=== PATIENT | female | born 1940 | race American Indian/Alaskan Native ===

== ENCOUNTER 2018-05-22 10:22 | Day surgery (SDC) | payer MEDICARE, OTHER ==
[2018-05-22] MEDS ORDERED: Midazolam 1 MG/ML 2 ML SDV IV ONE (10:23)
[2018-05-22] MEDS ORDERED: Dexamethasone 4 MG/ML SDV IV ONE (10:23)
[2018-05-22] MEDS ORDERED: Sodium Chloride 0.9% 10 ML Syringe IV ONE (10:23)
[2018-05-22] MEDS ORDERED: Sodium Chloride 0.9% 10 ML Syringe FLUSH PRN (10:30)
[2018-05-22] MEDS ORDERED: Moxifloxacin 0.5% Ophth Soln 3 ML Bottle EYERT ONE (10:30)
[2018-05-22] MEDS ORDERED: Phenylephrine 10% Ophth Soln 5 ML Bot EYERT PRN (10:30)
[2018-05-22] MEDS ORDERED: Ondansetron 4 MG/2 ML SDV IVPUSH PRN (10:30)
[2018-05-22] MEDS ORDERED: Phenylephrine 10% Ophth Soln 5 ML Bot EYERT ONE (10:30)
[2018-05-22] MEDS ORDERED: Timolol Maleate 0.5% Ophth Soln 5 ML Bottle EYERT ONE (10:30)
[2018-05-22] MEDS ORDERED: Cataract Ophth Solution EYERT ONE (10:30)
[2018-05-22] MEDS ORDERED: Proparacaine 0.5% Ophth Soln 15 ML Bottle EYERT ONE (10:30)
[2018-05-22] MEDS ORDERED: Acetaminophen 325 MG Tab PO PRN (10:30)
[2018-05-22] MEDS ORDERED: Povidone-Iodine 5% Sterile Ophth Soln 30 ML Bottle EYERT ONE ×2 (10:30→11:14)
[2018-05-22] MEDS ORDERED: Tetracaine HCl/PF 0.5% 4 ML Bottle EYERT ONE (11:14)
[2018-05-22] MEDS ORDERED: Lidocaine 1% 30 ML SDV ONE (11:14)
[2018-05-22] MEDS ORDERED: Diclofenac Sodium 0.1% Ophth Soln 5 ML Bottle EYERT ONE (11:14)
[2018-05-22] MEDS ORDERED: Dexamethasone/Neomycin/Polymyxin B Ophth Oint 3.5 GM Tube EYERT ONE (11:15)
[2018-05-22] MEDS ORDERED: Vancomycin 500 MG SDV EYERT ONE (11:15)
[2018-05-22] MEDS ORDERED: Balanced Salt Solution Ophth Irrig 500 ML Bottle IOCULAR ONE (11:15)
[2018-05-22] MEDS ORDERED: Apraclonidine 0.5% Ophth Soln 5 ML Bot EYERT ONE (11:15)
[2018-05-22] MEDS ORDERED: Chondroitin Sulfate/Hyaluronate Sodium Ophth Inj 0.75 ML Syringe EYERT ONE (11:16)
--- NOTE | 2018-05-22 14:11 | OR ---
DATE: 05/22/2018 PREOPERATIVE DIAGNOSIS: Visually significant mixed cataract, right eye. POSTOPERATIVE DIAGNOSIS: Visually significant mixed cataract, right eye. PROCEDURE: Extracapsular cataract extraction with intraocular lens implant, right eye. ANESTHESIA: Topical/local MAC. COMPLICATIONS: None. INDICATION: Ms. Severino was seen in the clinic. Examination revealed visually significant cataract. She is symptomatic with blurred vision, difficulty reading, and difficulty seeing small print. I explained options; offered surgery; and I explained risks preoperatively including the potential for infection, retinal detachment, loss of vision, and need for additional surgery amongst others. We discussed implant options. She has requested surgery with a monofocal implant. She is unhappy with her vision, voiced an understanding with respect to risks and wished to proceed. OPERATIVE DESCRIPTION: After informed consent was obtained and the risks, benefits, and alternatives were explained, the patient was brought to the operative suite and topical anesthesia was administered. The patient was then prepped and draped in the sterile fashion, and attention was placed on the right eye. A sterile lid speculum was placed into the right eye to allow operative exposure. A full-thickness paracentesis was made in the temporal portion of the operative eye. Preservative-free lidocaine 0.1 mL was injected into the anterior chamber followed by viscoelastic. A full-thickness corneal incision was then made into the anterior chamber. A bent needle cystotome was used to create a small magali in the anterior capsule. The capsulorrhexis forceps was then used to create a 360-degree curvilinear capsulorrhexis. The nucleus was then removed using a phacoemulsification handpiece, and the remaining cortical material was then removed with irrigation and aspiration handpiece. Following removal of the cortical material, the capsular bag was then inspected and noted to be free of any holes or tears. Viscoelastic was then injected into the capsular bag, and the intraocular lens was inserted into the capsular bag. The viscoelastic material was then removed from both the anterior and posterior chambers and from behind the IOL. The lens and capsular bag were then reinspected. The IOL was well centered and the capsular bag intact. The wound and paracentesis sites were inspected and hydrated with balanced saline solution. Both were found to be self-sealing. The intraocular pressure was assessed digitally and found to be within normal range. A good red reflex was noted at the completion of the procedure. No complications occurred during the operation. At the completion of the procedure, Maxitrol, Voltaren, and Iopidine drops were placed into the operative eye. A sterile eye shield was placed over the operative eye, and the patient was transported to the postoperative recovery area having tolerated the procedure well. Postoperative instructions were given along with a postoperative appointment. The patient was advised to call with any questions or concerns. [facility] /[id number]
== END 2018-05-22 12:38 | disposition home or self-care (01) ==
LOC: DL.SDS 10:22
PROVIDERS: ATTEND Ophthalmology
DX: E11.36 Type 2 diabetes mellitus with diabetic cataract (principal); H25.811 Combined forms of age-related cataract, right eye; I10 Essential (primary) hypertension; E78.5 Hyperlipidemia, unspecified; D64.9 Anemia, unspecified; Z79.82 Long term (current) use of aspirin; Z79.899 Other long term (current) drug therapy
CPT/HCPCS: 00142; 66984; A9270; J1100; J2250; J3370; V2632

== ENCOUNTER 2020-09-01 17:45 | Emergency (ER) | payer MEDICARE, OTHER ==
--- NOTE | 2020-09-01 18:42 | EDM.PDOC ---
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 The patient reports she was standing up from her chair at approximately 0900 when her foot caught on her lap blanket and she tipped over onto her head. She denies loss of consciousness and remembers the event in its entirety; she is not on blood thinners. She reports bleeding from a laceration to her head which has since stopped and scabbed over. She denies vision changes, headache, confusion, projectile vomiting, palpitations, or seizure-like activity. The patient denies pain to her neck, trunk, bilateral upper extremities, or right lower extremity. She attests to chronic pain to left, lateral low back and left hip for the past month, 08/01/20. The patient reports she underwent a total hip in 03/2020 which has been healing well, however she woke up with pain in this extremity on Sunday and has been doctoring with her surgeon and primary care provider since. She presents today at the request of her daughter who is concerned about the laceration requiring repair. - Related Data Allergies Allergy/AdvReac Type Severity Reaction Status Date / Time aspirin AdvReac ITCHING, Uncoded 09/02/20 10:37 WATERING EYES lisinopril AdvReac Cough Uncoded 09/02/20 10:37 Home Meds: Home Meds metFORMIN HCl [Metformin HCl] 500 mg PO BID 11/05/15 [History] Acetaminophen [Tylenol] 650 mg PO .Q4-6H PRN 02/20/18 [History] Ascorbic Acid 250 mg PO DAILY 02/20/18 [History] Calcium Carbonate/Vitamin D3 [Calcium Carbonate/Vitamin D 600 MG-200 Unit] 1 tab PO BID 02/20/18 [History] Carboxymethylcellulose Sodium [Refresh Liquigel 1%] 1 drop EYEBOTH QID PRN 02/20/18 [History] Cholecalciferol (Vitamin D3) [Vitamin D3] 1,000 units PO DAILY 02/20/18 [History] Cyanocobalamin (Vitamin B-12) [B-12] 1,000 mcg PO DAILY 02/20/18 [History] Ferrous Gluconate 324 mg PO DAILY 02/20/18 [History] Gabapentin [Neurontin] 800 mg PO TID 02/20/18 [History] Losartan [Cozaar] 100 mg PO DAILY 02/20/18 [History] Simvastatin [Zocor] 40 mg PO DAILY 02/20/18 [History] atenoloL [Tenormin] 50 mg PO DAILY 02/20/18 [History] hydroCHLOROthiazide [Hydrochlorothiazide] 25 mg PO DAILY 02/20/18 [History] Omeprazole 20 mg PO DAILY 02/25/18 [History] Clarithromycin 500 mg PO BID 03/08/18 [History] metroNIDAZOLE [Metronidazole] 500 mg PO BID 03/08/18 [History] tiZANidine [Zanaflex] 2 mg PO Q6HR PRN 09/01/20 [History] traMADol [Ultram] 50 mg PO Q6HR PRN 09/01/20 [History] Past Medical History HEENT History: Reports: Cataract, Hard of Hearing, Impaired Vision Cardiovascular History: Reports: High Cholesterol, Hypertension Respiratory History: Reports: None Gastrointestinal History: Reports: None Genitourinary History: Reports: None 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: Musculoskeletal History: Reports: RA Neurological History: Reports: None Psychiatric History: Reports: None Endocrine/Metabolic History: Reports: Diabetes, Type II Hematologic History: Reports: Iron Deficiency Immunologic History: Reports: None Oncologic (Cancer) History: Reports: None Dermatologic History: Reports: None - Infectious Disease History Infectious Disease History: Reports: None - Past Surgical History Head Surgeries/Procedures: Reports: None HEENT Surgical History: Reports: Cataract Surgery, Tonsillectomy, Other (See Below) Other HEENT Surgeries/Procedures: EAR SURG DUE TO HEARING LOSS Cardiovascular Surgical History: Reports: None GI Surgical History: Reports: Appendectomy, Cholecystectomy, Colonoscopy Female Surgical History: Reports: Section, Hysterectomy Musculoskeletal Surgical History: Reports: None Social & Family History - Family History Family Medical History: No Pertinent Family History - Tobacco Use Tobacco Use Status *Q: Never Tobacco User Second Hand Smoke Exposure: No - Caffeine Use Caffeine Use: Reports: Coffee - Recreational Drug Use Recreational Drug Use: No ED ROS GENERAL - Review of Systems Review Of Systems: Comprehensive ROS is negative, except as noted in HPI. ED EXAM, GENERAL - Physical Exam Exam: See Below Exam Limited By: No Limitations General Appearance: Alert, No Apparent Distress Eye Exam: Bilateral Eye: EOMI, Normal Inspection, PERRL (3mm) Ears: Normal External Exam, Normal Canal, Hearing Grossly Normal, Normal TMs Ear Exam: Bilateral Ear: Auricle Normal, Canal Normal, TM normal Nose: Normal Inspection, Normal Mucosa, No Blood Throat/Mouth: Normal Inspection, Normal Oropharynx, Normal Voice, No Airway Compromise Head: Normocephalic, Facial Tenderness (To left upper, lateral forehead extending into hairline), Other (2.5cm clean, linear laceration to left hairline; No active bleeding; Scab well adhered; Ecchymosis surrounding laceration and extending into left lateral forehead). No: Facial Swelling Neck: Normal Inspection, Supple, Non-Tender, Full Range of Motion. No: Lymphadenopathy (L), Lymphadenopathy (R), Tender Lateral, Tender Midline Respiratory/Chest: No Respiratory Distress, Lungs Clear, Normal Breath Sounds, No Accessory Muscle Use, Chest Non-Tender Cardiovascular: Normal Peripheral Pulses, Regular Rate, Rhythm, No Edema, No Gallop, No JVD, No Murmur, No Rub Peripheral Pulses: 2+: Radial (L), Radial (R), Dorsalis Pedis (L), Dorsalis Pedis (R) GI/Abdominal: Normal Bowel Sounds, Soft, Non-Tender, No Distention, No Abnormal Bruit, No Mass, Pelvis Stable (Female) Exam: Deferred Rectal (Female) Exam: Deferred Back Exam: Decreased Range of Motion (Chronic since 08/01/20). No: CVA Tenderness (L), CVA Tenderness (R), Muscle Spasm, Paraspinal Tenderness, Vertebral Tenderness Extremities: Normal Capillary Refill, Pedal Edema (+1 pitting, bilaterally), Leg Pain (To left hip, extending into left lateral knee; Chronic ), Limited Range of Motion (To left hip; Chronic). No: Joint Swelling, Increased Warmth, Mottled, Pallor, Redness Neurological: Alert, Oriented, CN II-XII Intact, Normal Cognition, No Motor/Sensory Deficits, Abnormal Gait (Walker for ambulation; Significant foreward hinge at the hips for ambulation d/t chronic back/hip pain) Psychiatric: Normal Affect, Normal Mood Skin Exam: Warm, Dry, Ecchymosis (To left lateral forehead, extending into left hairline), Wound/Incision (See above). No: Erythema, Jaundice, Mottled, Pallor, Petechiae Course - Vital Signs Last Recorded V/S: Last Vital Signs Temp 98.4 F 09/01/20 18:13 Pulse 69 09/01/20 18:13 Resp 16 09/01/20 18:13 BP 116/29 L 09/01/20 18:13 Pulse Ox 98 09/01/20 18:13 - Re-Assessments/Exams Free Text/Narrative Re-Assessment/Exam: 09/01/20 Given clean scab to laceration, with no active bleeding, will refrain from bala at this time. Patient and daughter would like to avoid head CT given concerns regarding her ability to lay still on CT table with hip pain. 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 Discussed red flag signs and symptoms which would warrant immediate reevaluation. Patient to continue following with surgeon and primary care provider regarding hip/low back pain. Patient and daughter verbalized understanding and agreement with the plan of care. Departure - Departure Time of Disposition: 18:38 Disposition: Home, Self-Care 01 Condition: Good Clinical Impression: Fall from ground level, Chronic left hip pain Laceration of head Qualifiers: Encounter type: initial encounter Location of open wound of head: scalp Foreign body presence: without foreign body Qualified Code(s): S01.01XA - Laceration without foreign body of scalp, initial encounter Chronic low back pain Qualifiers: Back pain laterality: left Sciatica presence: with sciatica Sciatica laterality: sciatica of left side Qualified Code(s): M54.42 - Lumbago with sciatica, left side - Discharge Information *PRESCRIPTION DRUG MONITORING PROGRAM REVIEWED*: Not Applicable *COPY OF PRESCRIPTION DRUG MONITORING REPORT IN PATIENT JOSIE: Not Applicable Instructions: Fall Prevention in the Home, Adult, [id number], Nonsutured Laceration Care Referrals: PCP,None [Primary Care Provider] - Forms: ED Department Discharge Additional Instructions: 1.) Continue to monitor for neurocognitive signs and symptoms, including increased confusion, odd speech, change in pupil size on one size, seizure-like activity, or projectile vomiting. Return to the emergency department with any of these symptoms. 2.) Follow up with primary care provider in 2-3 days regarding today's visit. 3.) Continue with previously scheduled MRI for chronic low-pack and hip pain. Sepsis Event Note (ED) - Evaluation Sepsis Screening Result: No Definite Risk
== END 2020-09-01 18:45 | disposition home or self-care (01) ==
LOC: DL.ED 17:45
DX: S01.01XA Laceration without foreign body of scalp, initial encounter (principal); M54.42 Lumbago with sciatica, left side; M25.552 Pain in left hip; G89.29 Other chronic pain; E78.00 Pure hypercholesterolemia, unspecified; I10 Essential (primary) hypertension; E11.9 Type 2 diabetes mellitus without complications; Z79.84 Long term (current) use of oral hypoglycemic drugs; Z79.899 Other long term (current) drug therapy; Z88.6 Allergy status to analgesic agent; Z88.8 Allergy status to other drugs, medicaments and biological substances; W18.30XA Fall on same level, unspecified, initial encounter
CPT/HCPCS: 99283; 99284

== ENCOUNTER 2020-09-02 09:38 | Emergency (ER) | payer MEDICARE, OTHER ==
--- NOTE | 2020-09-02 11:18 | EDM.PDOC ---
ED HPI GENERAL MEDICAL PROBLEM - General Chief Complaint: Eye Problems Stated Complaint: FALL Time Seen by Provider: 09/02/20 11:08 Source of Information: Reports: Patient, Family (Daughter), RN, RN Notes Reviewed History Limitations: Reports: No Limitations - History of Present Illness INITIAL COMMENTS - FREE TEXT/NARRATIVE: Jluita is an 80 y/o female who presents to the ED via personal vehicle with daughter for complaints of syncope while laying in bed this morning. The patient is s/p fall from ground level yesterday, 09/01/20, from which she sustained a laceration to her left anterior scalp with a surrounding hematoma. A head CT was not performed yesterday as this fall happened at approximately 0900 and the patient did not present until late in the evening; she was c ompletely asymptomatic with no evidence of increased ICP and no blood thinner use. The patient presents today as she was looking at her bedside clock immediately upon awakening and "...everything went dark." She states she then felt a sharp pain "shoot" through her body, from her head down to her toes. She denies experiencing any additional episodes of this nature. She denies double/blurry vision, headache, weakness, projectile vomiting, confusion, change in speech, or seizure-like activity. She denies chest pain, palpitations, or shortness of breath. The patient states she has not taken her morning blood sugar medications, but her check this morning was 84. Left Leg Pain Score (Numeric/FACES): 9 - Related Data Allergies Allergy/AdvReac Type Severity Reaction Status Date / Time aspirin AdvReac ITCHING, Uncoded 09/02/20 10:37 WATERING EYES lisinopril AdvReac Cough Uncoded 09/02/20 10:37 Home Meds: Home Meds metFORMIN HCl [Metformin HCl] 500 mg PO BID 11/05/15 [History] Acetaminophen [Tylenol] 650 mg PO .Q4-6H PRN 02/20/18 [History] Ascorbic Acid 250 mg PO DAILY 02/20/18 [History] Calcium Carbonate/Vitamin D3 [Calcium Carbonate/Vitamin D 600 MG-200 Unit] 1 tab PO BID 02/20/18 [History] Carboxymethylcellulose Sodium [Refresh Liquigel 1%] 1 drop EYEBOTH QID PRN 02/20/18 [History] Cholecalciferol (Vitamin D3) [Vitamin D3] 1,000 units PO DAILY 02/20/18 [History] Cyanocobalamin (Vitamin B-12) [B-12] 1,000 mcg PO DAILY 02/20/18 [History] Ferrous Gluconate 324 mg PO DAILY 02/20/18 [History] Gabapentin [Neurontin] 800 mg PO TID 02/20/18 [History] Losartan [Cozaar] 100 mg PO DAILY 02/20/18 [History] Simvastatin [Zocor] 40 mg PO DAILY 02/20/18 [History] atenoloL [Tenormin] 50 mg PO DAILY 02/20/18 [History] hydroCHLOROthiazide [Hydrochlorothiazide] 25 mg PO DAILY 02/20/18 [History] Omeprazole 20 mg PO DAILY 02/25/18 [History] Clarithromycin 500 mg PO BID 03/08/18 [History] metroNIDAZOLE [Metronidazole] 500 mg PO BID 03/08/18 [History] tiZANidine [Zanaflex] 2 mg PO Q6HR PRN 09/01/20 [History] traMADol [Ultram] 50 mg PO Q6HR PRN 09/01/20 [History] Past Medical History HEENT History: Reports: Cataract, Hard of Hearing, Impaired Vision Cardiovascular History: Reports: High Cholesterol, Hypertension Respiratory History: Reports: None Gastrointestinal History: Reports: None Genitourinary History: Reports: None 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: Musculoskeletal History: Reports: RA Neurological History: Reports: None Psychiatric History: Reports: None Endocrine/Metabolic History: Reports: Diabetes, Type II Hematologic History: Reports: Iron Deficiency Immunologic History: Reports: None Oncologic (Cancer) History: Reports: None Dermatologic History: Reports: None - Infectious Disease History Infectious Disease History: Reports: None - Past Surgical History Head Surgeries/Procedures: Reports: None HEENT Surgical History: Reports: Cataract Surgery, Tonsillectomy, Other (See Below) Other HEENT Surgeries/Procedures: EAR SURG DUE TO HEARING LOSS Cardiovascular Surgical History: Reports: None GI Surgical History: Reports: Appendectomy, Cholecystectomy, Colonoscopy Female Surgical History: Reports: Section, Hysterectomy Musculoskeletal Surgical History: Reports: None Social & Family History - Family History Family Medical History: No Pertinent Family History - Tobacco Use Tobacco Use Status *Q: Never Tobacco User - Caffeine Use Caffeine Use: Reports: Coffee - Recreational Drug Use Recreational Drug Use: No ED ROS GENERAL - Review of Systems Review Of Systems: Comprehensive ROS is negative, except as noted in HPI. ED EXAM GENERAL W FULL EYE - Physical Exam Exam: See Below Exam Limited By: No Limitations General Appearance: Alert, No Apparent Distress Eye Exam: Bilateral Eye: EOMI, Normal Inspection, PERRL (2mm) Eyelids: Bilateral: Normal Appearance Conjunctiva & Sclera: Bilateral: Normal Appearance Pupils: Normal Accommodation Pupillary Size: Bilateral: 2 mm Pupillary Reaction: Bilateral: Brisk Ears: Normal External Exam, Normal Canal, Hearing Grossly Normal, Normal TMs Nose: Normal Inspection, Normal Mucosa, No Blood Throat/Mouth: Normal Inspection, Normal Oropharynx, Normal Voice, No Airway Compromise Head: Normocephalic, Other (Hematoma to left, lateral forehead extending posteriorly into hairline; Clean, scabbed laceration present) Respiratory/Chest: No Respiratory Distress, Lungs Clear, Normal Breath Sounds, No Accessory Muscle Use, Chest Non-Tender Cardiovascular: Normal Peripheral Pulses, Regular Rate, Rhythm, No Edema, No Gallop, No JVD, No Murmur, No Rub GI/Abdominal: Normal Bowel Sounds, Soft, No Distention, No Mass, Pelvis Stable (Male) Exam: Deferred (Female) Exam: Deferred Rectal (Males) Exam: Deferred Rectal (Female) Exam: Deferred Back Exam: Normal Inspection, Decreased Range of Motion (Chroinic left low, lateral back pain) Extremities: No Pedal Edema, Normal Capillary Refill, Leg Pain (Chronic to left hip, extending into knee), Limited Range of Motion (Chronic to left hip, extending into knee). No: Increased Warmth, Pallor, Redness Neurological: Alert, Oriented, CN II-XII Intact, Normal Cognition, No Motor/Sensory Deficits, Abnormal Gait (Walker for ambulation; Pain to left low back, left hip, and left knee with ambulation) Psychiatric: Normal Affect, Normal Mood Skin Exam: Warm, Dry, Ecchymosis (Surrounding laceration to left, lateral forehead), Wound/Incision (See above). No: Erythema, Jaundice, Mottled, Pallor, Petechiae #1 Interpretation EKG Date: 09/02/20 Time: 11:42 Rhythm: NSR Rate (Beats/Min): 62 [place]: Normal P-Wave: Present QRS: Normal ST-T: Normal QT: Normal PA/PQ Interval: 0.2 EKG Interpretation Comments: NSR; No evidence of acute myocardial ischemia. #2 Interpretation EKG Date: 09/02/20 Time: 15:52 Rhythm: NSR Rate (Beats/Min): 91 [place]: Normal P-Wave: Present QRS: Normal ST-T: Normal QT: Normal PA/PQ Interval: 0.152 Comparison: No Change EKG Interpretation Comments: NSR; No evidence of acute myocardial ischemia Course - Vital Signs Last Recorded V/S: Last Vital Signs Temp 97.6 F 09/02/20 16:40 Pulse 70 09/02/20 16:40 Resp 15 09/02/20 16:40 BP 135/46 L 09/02/20 16:40 Pulse Ox 97 09/02/20 16:40 - Orders/Labs/Meds Labs: Laboratory Tests 09/02/20 09/02/20 09/02/20 Range/Units 10:43 11:29 11:29 WBC 6.7 (5.0-10.0) 10^3/uL RBC 4.07 L (4.2-5.4) 10^6/uL Hgb 10.4 L (12.0-16.0) g/dL Hct 33.3 L (37.0-47.0) % MCV 81.8 (80-100) fL MCH 25.6 L (27.0-34.0) pg MCHC 31.2 L (33.0-35.0) g/dL Plt Count 418 (150-450) 10^3/uL Neut % (Auto) 63.8 (42.2-75.2) % Lymph % (Auto) 18.0 L (20.5-50.1) % [place] % (Auto) 11.8 H (2-8) % Eos % (Auto) 5.4 H (1.0-3.0) % Baso % (Auto) 1.0 (0.0-1.0) % Sodium 135 L (136-145) mmol/L Potassium 5.0 (3.5-5.1) mmol/L Chloride 95 L (98-107) mmol/L Carbon Dioxide 31 (21-32) mmol/L Anion Gap 14.0 H (7-13) mEq/L BUN 17 (7-18) mg/dL Creatinine 1.13 H (0.55-1.02) mg/dL Est Cr Clr Drug Dosing 33.72 mL/min Estimated GFR (MDRD) 46 BUN/Creatinine Ratio 15.0 (No establ ref range) Glucose 91 (70-99) mg/dL POC Glucose 93 (70-99) mg/dL Lactic Acid (0.4-2.0) mmol/L Calcium 9.1 (8.5-10.1) mg/dL Total Bilirubin 0.8 (0.2-1.0) mg/dL AST 15 (15-37) U/L ALT 19 (14-59) U/L Alkaline Phosphatase 69 (46-116) U/L Troponin I 0.050 (0.000-0.056) ng/mL B-Natriuretic Peptide (0-100) pg/ml Total Protein 6.7 (6.4-8.2) g/dL Albumin 3.3 L (3.4-5.0) g/dL Globulin 3.4 Albumin/Globulin Ratio 0.97 Urine Color (YELLOW) Urine Appearance (CLEAR) Urine pH (5.0-9.0) Ur Specific [place] (1.005-1.030) Urine Protein (NEGATIVE) Urine Glucose (UA) (NEGATIVE) Urine Ketones (NEGATIVE) Urine Occult Blood (NEGATIVE) Urine Nitrite (NEGATIVE) Urine Bilirubin (NEGATIVE) Urine Urobilinogen (0.2-1.0) mg/dL Ur Leukocyte Esterase (NEGATIVE) Urine RBC /HPF Urine WBC (0-5/HPF) /HPF Ur Epithelial Cells (NOT SEEN) /HPF Urine Bacteria (0-FEW/HPF) /HPF Urine Mucus (NOT SEEN) /LPF 09/02/20 09/02/20 09/02/20 Range/Units 11:29 11:29 12:30 WBC (5.0-10.0) 10^3/uL RBC (4.2-5.4) 10^6/uL Hgb (12.0-16.0) g/dL Hct (37.0-47.0) % MCV (80-100) fL MCH (27.0-34.0) pg MCHC (33.0-35.0) g/dL Plt Count (150-450) 10^3/uL Neut % (Auto) (42.2-75.2) % Lymph % (Auto) (20.5-50.1) % [place] % (Auto) (2-8) % Eos % (Auto) (1.0-3.0) % Baso % (Auto) (0.0-1.0) % Sodium (136-145) mmol/L Potassium (3.5-5.1) mmol/L Chloride (98-107) mmol/L Carbon Dioxide (21-32) mmol/L Anion Gap (7-13) mEq/L BUN (7-18) mg/dL Creatinine (0.55-1.02) mg/dL Est Cr Clr Drug Dosing mL/min Estimated GFR (MDRD) BUN/Creatinine Ratio (No establ ref range) Glucose (70-99) mg/dL POC Glucose (70-99) mg/dL Lactic Acid 1.2 (0.4-2.0) mmol/L Calcium (8.5-10.1) mg/dL Total Bilirubin (0.2-1.0) mg/dL AST (15-37) U/L ALT (14-59) U/L Alkaline Phosphatase (46-116) U/L Troponin I (0.000-0.056) ng/mL B-Natriuretic Peptide 406 H (0-100) pg/ml Total Protein (6.4-8.2) g/dL Albumin (3.4-5.0) g/dL Globulin Albumin/Globulin Ratio Urine Color Yellow (YELLOW) Urine Appearance Clear (CLEAR) Urine pH 6.0 (5.0-9.0) Ur Specific [place] 1.010 (1.005-1.030) Urine Protein Negative (NEGATIVE) Urine Glucose (UA) Negative (NEGATIVE) Urine Ketones Negative (NEGATIVE) Urine Occult Blood Negative (NEGATIVE) Urine Nitrite Negative (NEGATIVE) Urine Bilirubin Negative (NEGATIVE) Urine Urobilinogen 0.2 (0.2-1.0) mg/dL Ur Leukocyte Esterase Small H (NEGATIVE) Urine RBC Not seen /HPF Urine WBC 0-5 (0-5/HPF) /HPF Ur Epithelial Cells Rare (NOT SEEN) /HPF Urine Bacteria Moderate H (0-FEW/HPF) /HPF Urine Mucus Not seen (NOT SEEN) /LPF 09/02/20 Range/Units 15:59 WBC (5.0-10.0) 10^3/uL RBC (4.2-5.4) 10^6/uL Hgb (12.0-16.0) g/dL Hct (37.0-47.0) % MCV (80-100) fL MCH (27.0-34.0) pg MCHC (33.0-35.0) g/dL Plt Count (150-450) 10^3/uL Neut % (Auto) (42.2-75.2) % Lymph % (Auto) (20.5-50.1) % [place] % (Auto) (2-8) % Eos % (Auto) (1.0-3.0) % Baso % (Auto) (0.0-1.0) % Sodium (136-145) mmol/L Potassium (3.5-5.1) mmol/L Chloride (98-107) mmol/L Carbon Dioxide (21-32) mmol/L Anion Gap (7-13) mEq/L BUN (7-18) mg/dL Creatinine (0.55-1.02) mg/dL Est Cr Clr Drug Dosing mL/min Estimated GFR (MDRD) BUN/Creatinine Ratio (No establ ref range) Glucose (70-99) mg/dL POC Glucose (70-99) mg/dL Lactic Acid (0.4-2.0) mmol/L Calcium (8.5-10.1) mg/dL Total Bilirubin (0.2-1.0) mg/dL AST (15-37) U/L ALT (14-59) U/L Alkaline Phosphatase (46-116) U/L Troponin I 0.040 (0.000-0.056) ng/mL B-Natriuretic Peptide (0-100) pg/ml Total Protein (6.4-8.2) g/dL Albumin (3.4-5.0) g/dL Globulin Albumin/Globulin Ratio Urine Color (YELLOW) Urine Appearance (CLEAR) Urine pH (5.0-9.0) Ur Specific [place] (1.005-1.030) Urine Protein (NEGATIVE) Urine Glucose (UA) (NEGATIVE) Urine Ketones (NEGATIVE) Urine Occult Blood (NEGATIVE) Urine Nitrite (NEGATIVE) Urine Bilirubin (NEGATIVE) Urine Urobilinogen (0.2-1.0) mg/dL Ur Leukocyte Esterase (NEGATIVE) Urine RBC /HPF Urine WBC (0-5/HPF) /HPF Ur Epithelial Cells (NOT SEEN) /HPF Urine Bacteria (0-FEW/HPF) /HPF Urine Mucus (NOT SEEN) /LPF Meds: Medications Discontinued Medications Generic Name Dose Route Start Last Admin Trade Name Maylin PRN Reason Stop Dose Admin Cyclobenzaprine HCl 10 mg 09/02/20 12:30 09/02/20 12:39 Cyclobenzaprine 10 Mg Tab PO 09/02/20 12:31 10 mg ONETIME ONE Administration Sodium Chloride 500 mls @ 250 mls/hr 09/02/20 12:15 09/02/20 15:32 Normal Saline IV 09/02/20 14:14 Infused .BOLUS ONE Infusion Tramadol HCl 50 mg 09/02/20 12:30 09/02/20 12:39 Tramadol 50 Mg Tab PO 09/02/20 12:31 50 mg ONETIME ONE Administration - Radiology Interpretation Free Text/Narrative:: [facility] Final Radiology Report Call: [phone] assistance Online chat: [email or web address] Name: JULITA WALLIS Age: 80Years F Date: 09/02/2020 SSN: -- : [id number] Study: CT HEAD WO CONT Requesting Physician: Adelia Barr Images: [id number] Addl Studies: Provided Clinical History: Pre-syncope while laying in bed Contrast: Without Contrast Medium: Contrast Amount: Contrast Method: Page 1 of 2 PROCEDURE INFORMATION: Exam: CT Head Without Contrast Exam date and time: 09/02/2020 11:17 AM Age: 80 years old Clinical indication: Other: Pre-syncope while laying in bed; Prior surgery; Surgery date: 6+ months TECHNIQUE: Imaging protocol: Computed tomography of the head without contrast. Radiation optimization: All CT scans at this facility use at least one of these dose optimization techniques: automated exposure control; mA and/or kV adjustment per patient size (includes targeted exams where dose is matched to clinical indication); or iterative reconstruction. COMPARISON: MR Brain w wo Cont 10/22/2018 1:12 PM FINDINGS: Tubes, catheters and devices: Artifact from right cochlear implant. Status post partial right mastoidectomy. Brain: Prominent sulci. Patchy hypodensity of the cerebral white matter which are nonspecific but likely secondary to microangiopathic changes. Cerebral ventricles: The ventricles are prominent secondary to diffuse volume loss/atrophy. Bones/joints: Unremarkable. No acute fracture. Paranasal sinuses: Visualized sinuses are unremarkable. No fluid levels. Mastoid air cells: See "Tubes, catheters and devices" finding. Soft tissues: Unremarkable. IMPRESSION: 1. Chronic age related changes but no evidence of acute intracranial pathology. 2. Artifact from right cochlear implant. Status post partial right mastoidectomy. Thank you for allowing us to participate in the care of your patient. Dictated and Authenticated by: Elizabeth Grier MD 09/02/2020 11:50 AM Central Time ([place] & [place]) - Re-Assessments/Exams Free Text/Narrative Re-Assessment/Exam: 09/02/20 CT head w/o obtained. Unremarkable for acute processes. Hgb 10.4 with normocytic, hypochromic anemia noted; patient on iron, vitamin B12, and Vitamin D/Calcium daily. No evidence of infection via CBC. Mild reduction in kidney function via CMP; creatinine 1.13, BUN 17, and GFR 46. Sodium slightly low at 135, otherwise electrolytes appropriate. Liver function WNL. UA unremarkable. EKG reveal NSR. Troponin WNL but elevated above baseline at 0.05. Discussed findings of examination, lab work, and imaging with patient and her daughter. Discussed trending Troponin, even though it is WNL, as it is elevated about baseline; patient and daughter are in agreement with this plan. Will place patient in extended stay and recheck in 4 hours. Troponin recheck down to 0.04 EKG remains NSR. Patient continues to deny chest pain or shortness of breath. She has had no vision changes or pre-syncope since arrival to this facility. Patient instructed to follow up with primary care provider in 2-3 days regarding todays visit as she may require a ZioPatch for cardiac monitoring should she experience another event. Red flag signs and symptoms which would warrant immediate reevaluation reviewed. Patient and daughter verbalized understanding and agreement with the plan of care. Departure - Departure Time of Disposition: 16:49 Disposition: Home, Self-Care 01 Condition: Good Clinical Impression: Syncope Qualifiers: Syncope type: unspecified Qualified Code(s): R55 - Syncope and collapse - Discharge Information *PRESCRIPTION DRUG MONITORING PROGRAM REVIEWED*: Not Applicable *COPY OF PRESCRIPTION DRUG MONITORING REPORT IN PATIENT JOSIE: Not Applicable Instructions: Near-Syncope, [id number], Rehydration, Adult Referrals: PCP,None [Primary Care Provider] - Forms: ED Department Discharge Additional Instructions: 1.) Follow up with primary care provider in 2-3 days regarding today's visit; you may require ongoing heart monitoring. 2.) Drink plenty of fluids to stay hydrated. 3.) Continue with previously prescribed plan for left hip and low back pain Sepsis Event Note (ED) - Evaluation Sepsis Screening Result: No Definite Risk
--- NOTE | 2020-09-02 11:50 | CT ---
PROCEDURE INFORMATION: Exam: CT Head Without Contrast Exam date and time: 09/02/2020 11:17 AM Age: 80 years old Clinical indication: Other: Pre-syncope while laying in bed; Prior surgery; Surgery date: 6+ months TECHNIQUE: Imaging protocol: Computed tomography of the head without contrast. Radiation optimization: All CT scans at this facility use at least one of these dose optimization techniques: automated exposure control; mA and/or kV adjustment per patient size (includes targeted exams where dose is matched to clinical indication); or iterative reconstruction. COMPARISON: MR Brain w wo Cont 10/22/2018 1:12 PM FINDINGS: Tubes, catheters and devices: Artifact from right cochlear implant. Status post partial right mastoidectomy. Brain: Prominent sulci. Patchy hypodensity of the cerebral white matter which are nonspecific but likely secondary to microangiopathic changes. Cerebral ventricles: The ventricles are prominent secondary to diffuse volume loss/atrophy. Bones/joints: Unremarkable. No acute fracture. Paranasal sinuses: Visualized sinuses are unremarkable. No fluid levels. Mastoid air cells: See "Tubes, catheters and devices" finding. Soft tissues: Unremarkable. IMPRESSION: 1. Chronic age related changes but no evidence of acute intracranial pathology. 2. Artifact from right cochlear implant. Status post partial right mastoidectomy.
[2020-09-02] MEDS ORDERED: Sodium Chloride 0.9% 500 ML IV ONE (12:15)
[2020-09-02] MEDS ORDERED: traMADol 50 MG Tab PO ONE (12:30)
[2020-09-02] MEDS ORDERED: Cyclobenzaprine 10 MG Tab PO ONE (12:30)
== END 2020-09-02 18:20 | disposition home or self-care (01) ==
LOC: DL.ED 09:38
DX: R55 Syncope and collapse (principal); S01.01XA Laceration without foreign body of scalp, initial encounter; E78.00 Pure hypercholesterolemia, unspecified; I10 Essential (primary) hypertension; E11.9 Type 2 diabetes mellitus without complications; Z79.84 Long term (current) use of oral hypoglycemic drugs; Z79.899 Other long term (current) drug therapy
CPT/HCPCS: 36415; 70450; 80053; 81001; 82947; 83605; 83880; 84484; 85025; 87077; 87086; 87186; 93005; 93010; 99284; 99284-25; A9270-GY; J7030

== ENCOUNTER 2023-02-08 10:57 | Inpatient (IN) | payer MEDICARE, OTHER ==
[~2023-02-08 10:57] MED LIST: Sodium Chloride 0.9% 10 ML Syringe FLUSH PRN
[2023-02-08 11:26] LABS: BASOPHILS PERCENT AUTO 0.7 % (0.0-1.0); EOSINOPHILS PERCENT AUTO 1.6 % (1.0-3.0); HEMATOCRIT 36.5 % (37.0-47.0); HEMOGLOBIN 11.9 g/dL (12.0-16.0); LYMPHOCYTES PERCENT AUTO 23.2 % (20.5-50.1); MEAN CORPUSCULAR HEMOGLOBIN 27.9 pg (27.0-34.0); MEAN CORPUSCULAR HGB CONC 32.6 g/dL (33.0-35.0); MEAN CORPUSCULAR VOLUME 85.5 fL (80-100); MONOCYTES PERCENT AUTO 8.8 % (2-8); NEUTROPHILS PERCENT AUTO 65.7 % (42.2-75.2); PLATELET COUNT,PLT 319 10^3/uL (150-450); RED BLOOD CELL COUNT 4.27 10^6/uL (4.2-5.4); WHITE BLOOD CELL COUNT,WBC 7.5 10^3/uL (5.0-10.0)
[2023-02-08] MEDS ORDERED: Sodium Chloride 0.9% 1,000 ML IV ONE ×2 (11:36→12:26)
[2023-02-08 11:42] LABS: APPEARANCE,URINE CLEAR (CLEAR); BILIRUBIN,URINE NEGATIVE (NEGATIVE); COLOR,URINE YELLOW (YELLOW); GLUCOSE,URINE NEGATIVE (NEGATIVE); KETONES,URINE NEGATIVE (NEGATIVE); LEUKOCYTE ESTERASE,URINE TRACE (NEGATIVE); NITRITE,URINE NEGATIVE (NEGATIVE); OCCULT BLOOD,URINE NEGATIVE (NEGATIVE); PH,URINE 5.5 (5.0-9.0); PROTEIN,URINE NEGATIVE (NEGATIVE); UROBILINOGEN,URINE 0.2 mg/dL (0.2-1.0)
[2023-02-08 11:50] LABS: LACTIC ACID 2.4 mmol/L (0.4-2.0)
[2023-02-08 11:54] LABS: PROTHROMBIN TIME 10.4 SEC (9.0-12.0)
[2023-02-08 11:55] LABS: A/G RATIO 1.1; ALANINE AMINOTRANSFERASE,ALT 45 U/L (14-59); ALBUMIN 3.7 g/dL (3.4-5.0); ALKALINE PHOSPHATASE 49 U/L (46-116); ASPARTATE AMNIOTRANSFERASE,AST 24 U/L (15-37); B-TYPE NATRIURETIC PEPTIDE,BNP 937 pg/ml (0-100); BILIRUBIN TOTAL 1.2 mg/dL (0.2-1.0); BLOOD UREA NITROGEN,BUN 49 mg/dL (7-18); BUN/CREATININE RATIO 26.2 (No establ ref range); C-REACTIVE PROTEIN 0.06 ng/dL (<=0.30); CALCIUM 10.2 mg/dL (8.5-10.1); CARBON DIOXIDE,CO2 23 mmol/L (21-32); CHLORIDE,CL 96 mmol/L (98-107); CREATININE 1.87 mg/dL (0.55-1.02); EST CRCL DRUG DOSING (CG) 19.68 mL/min; GLUCOSE RANDOM 117 mg/dL (70-99); MAGNESIUM 2.1 mg/dL (1.8-2.4); SODIUM,NA 131 mmol/L (136-145); TSH ULTRASENSITIVE 2.33 uIU/mL (0.36-3.74)
[2023-02-08 11:57] LABS: ESTIMATED GFR 26 mL/min (>=60)
[2023-02-08 11:58] LABS: ETHANOL BLOOD MEDICAL < 3 mg/dL (0)
[2023-02-08 12:00] LABS: BACTERIA,URINE RARE /HPF (0-FEW/HPF); EPITHELIAL CELLS,URINE RARE /HPF (NOT SEEN); RBC,URINE 0-5 /HPF (0-5)
[2023-02-08] MEDS ORDERED: Heparin Sodium 5,000 Units/ML Vial IVPUSH ONE (12:36)
[2023-02-08] MEDS ORDERED: Heparin Sodium/0.45% NaCl 25,000 UNITS/500 ML BAG IV SCH (12:45)
[2023-02-08] MEDS ORDERED: Heparin Sodium/0.45% NaCl 500 ML ONE (12:46)
[2023-02-08] MEDS ORDERED: cefTRIAXone 1 GM Vial IVPUSH ONE (12:54)
[2023-02-08] MEDS ORDERED: Magnesium Hydroxide 400 MG/5 ML Susp 30 ML Cup PO PRN (15:10)
[2023-02-08] MEDS ORDERED: Acetaminophen 325 MG Tab PO PRN (15:10)
[2023-02-08] MEDS ORDERED: Bisacodyl 5 MG Tab PO PRN (15:10)
[2023-02-08] MEDS ORDERED: Ondansetron 4 MG/2 ML SDV IVPUSH PRN (15:10)
[2023-02-08] MEDS ORDERED: Docusate Sodium 100 MG Cap PO PRN (15:10)
[2023-02-08] MEDS ORDERED: Acetaminophen 500 MG Tab PO PRN (15:44)
[2023-02-08] MEDS ORDERED: Carboxymethylcellulose Sodium 1% Ophth Gel 0.4 ML UD EYEBOTH PRN (15:44)
[2023-02-08] MEDS ORDERED: Loperamide 2 MG Cap PO PRN (15:44)
[2023-02-08] MEDS ORDERED: Glucagon,Human Recombinant 1 MG Vial IM PRN (15:47)
[2023-02-08] MEDS ORDERED: 50% Dextrose in Water 50 ML Syringe IVPUSH PRN (15:47)
[2023-02-08] MEDS: Diltiazem IR 30 MG Tab PO SCH ×3 (16:26→23:51)
[2023-02-08] MEDS: Atenolol 50 MG Tab PO SCH (16:26)
[2023-02-08] MEDS: Insulin Lispro 100 Units/ML 3 ML Vial SUBCUT SCH ×2 (17:19→21:38)
[2023-02-08] MEDS ORDERED: Rivaroxaban 10 MG Tab PO SCH (18:00)
[2023-02-08] MEDS: Calcium Carbonate/Vitamin D3 1250 MG-5 MCG Tab PO SCH (20:20)
[2023-02-08] MEDS: Gabapentin 400 MG Cap PO SCH (20:20)
[2023-02-08] MEDS ORDERED: atorvaSTATin 20 MG Tab PO SCH (21:00)
[2023-02-09] MEDS: Diltiazem IR 30 MG Tab PO SCH ×2 (05:27→11:52)
[2023-02-09] MEDS ORDERED: Cyanocobalamin (Vitamin B12) 1,000 MCG Tab PO SCH ×2 (06:00→08:00)
[2023-02-09] MEDS ORDERED: Ferrous Sulfate 325 MG Tab PO SCH ×2 (06:00→08:00)
[2023-02-09 06:34] LABS: BASOPHILS PERCENT AUTO 1.6 % (0.0-1.0); EOSINOPHILS PERCENT AUTO 4.3 % (1.0-3.0); HEMATOCRIT 31.9 % (37.0-47.0); HEMOGLOBIN 10.3 g/dL (12.0-16.0); LYMPHOCYTES PERCENT AUTO 29.5 % (20.5-50.1); MEAN CORPUSCULAR HEMOGLOBIN 27.6 pg (27.0-34.0); MEAN CORPUSCULAR HGB CONC 32.3 g/dL (33.0-35.0); MEAN CORPUSCULAR VOLUME 85.5 fL (80-100); MONOCYTES PERCENT AUTO 11.9 % (2-8); NEUTROPHILS PERCENT AUTO 52.7 % (42.2-75.2); PLATELET COUNT,PLT 275 10^3/uL (150-450); RED BLOOD CELL COUNT 3.73 10^6/uL (4.2-5.4)
[2023-02-09 07:02] LABS: ANION GAP 14.3 mEq/L (7-13); CALCIUM 9.2 mg/dL (8.5-10.1); CREATININE 1.56 mg/dL (0.55-1.02); EST CRCL DRUG DOSING (CG) 23.6 mL/min; POTASSIUM,K 4.3 mmol/L (3.5-5.1)
[2023-02-09] MEDS: Insulin Lispro 100 Units/ML 3 ML Vial SUBCUT SCH ×2 (08:11→11:52)
[2023-02-09] MEDS: Calcium Carbonate/Vitamin D3 1250 MG-5 MCG Tab PO SCH (08:51)
[2023-02-09] MEDS: Gabapentin 400 MG Cap PO SCH (08:51)
[2023-02-09] MEDS: Atenolol 50 MG Tab PO SCH (08:52)
[2023-02-09] MEDS ORDERED: Ascorbic Acid 500 MG Tab PO SCH (09:00)
[2023-02-09] MEDS ORDERED: Hydrochlorothiazide 25 MG Tab PO SCH (09:00)
[2023-02-09] MEDS ORDERED: Cholecalciferol (Vitamin D3) 25 MCG Tab PO SCH (09:00)
[2023-02-09] MEDS ORDERED: cefTRIAXone 1 GM Vial IVPUSH SCH (09:00)
== END 2023-02-09 12:57 | disposition home or self-care (01) | DRG 309 ==
LOC: DL.ED 10:57 → DL.MS 12:50
PROVIDERS: ADMIT Internal Medicine; ATTEND Internal Medicine
DX: I48.91 Unspecified atrial fibrillation (principal); N17.9 Acute kidney failure, unspecified; I12.9 Hypertensive chronic kidney disease with stage 1 through stage 4 chronic kidney disease, or unspecified chronic kidney disease; E11.22 Type 2 diabetes mellitus with diabetic chronic kidney disease; N18.9 Chronic kidney disease, unspecified; E86.0 Dehydration; D63.1 Anemia in chronic kidney disease; E11.9 Type 2 diabetes mellitus without complications; H91.90 Unspecified hearing loss, unspecified ear; E78.00 Pure hypercholesterolemia, unspecified; Z98.49 Cataract extraction status, unspecified eye; Z90.89 Acquired absence of other organs; Z98.890 Other specified postprocedural states; Z90.49 Acquired absence of other specified parts of digestive tract; I10 Essential (primary) hypertension; Z90.710 Acquired absence of both cervix and uterus; Z88.6 Allergy status to analgesic agent; Z88.8 Allergy status to other drugs, medicaments and biological substances; M06.9 Rheumatoid arthritis, unspecified; E78.5 Hyperlipidemia, unspecified; Z79.84 Long term (current) use of oral hypoglycemic drugs; Z79.899 Other long term (current) drug therapy
CPT/HCPCS: 36415; 71045; 80048; 80053; 80307; 81001; 82947; 83605; 83735; 83880; 84443; 84484; 85025; 85379; 85610; 86140; 87086; 93005; 93010; 93970; 96374; 99223; 99239; 99285; 99285-25; A9270-GY; J0696; J1644; J1815-GY; J3490; J7030

== ENCOUNTER 2023-02-26 15:47 | Inpatient (IN) | payer MEDICARE, OTHER ==
[2023-02-26] MEDS ORDERED: Sodium Chloride 0.9% 10 ML Syringe FLUSH PRN (16:05)
[2023-02-26 16:30] LABS: BASOPHILS PERCENT AUTO 1.4 % (0.0-1.0); EOSINOPHILS PERCENT AUTO 3.7 % (1.0-3.0); HEMATOCRIT 38.9 % (37.0-47.0); HEMOGLOBIN 12.2 g/dL (12.0-16.0); LYMPHOCYTES PERCENT AUTO 19.2 % (20.5-50.1); MEAN CORPUSCULAR HEMOGLOBIN 27.7 pg (27.0-34.0); MEAN CORPUSCULAR HGB CONC 31.4 g/dL (33.0-35.0); MEAN CORPUSCULAR VOLUME 88.2 fL (80-100); MONOCYTES PERCENT AUTO 8.7 % (2-8); PLATELET COUNT,PLT 312 10^3/uL (150-450); RED BLOOD CELL COUNT 4.41 10^6/uL (4.2-5.4); WHITE BLOOD CELL COUNT,WBC 6.6 10^3/uL (5.0-10.0)
[2023-02-26 16:45] LABS: INR 1.2 (0.9-1.2); PROTHROMBIN TIME 12.6 SEC (9.0-12.0)
[2023-02-26 16:51] LABS: B-TYPE NATRIURETIC PEPTIDE,BNP 1220 pg/ml (0-100)
[2023-02-26 16:59] LABS: A/G RATIO 0.9; ALANINE AMINOTRANSFERASE,ALT 21 U/L (14-59); ALBUMIN 3.6 g/dL (3.4-5.0); ALKALINE PHOSPHATASE 67 U/L (46-116); ANION GAP 15.5 mEq/L (7-13); ASPARTATE AMNIOTRANSFERASE,AST 14 U/L (15-37); BILIRUBIN TOTAL 1.3 mg/dL (0.2-1.0); BLOOD UREA NITROGEN,BUN 15 mg/dL (7-18); BUN/CREATININE RATIO 11.8 (No establ ref range); C-REACTIVE PROTEIN 0.67 ng/dL (<=0.30); CALCIUM 9.5 mg/dL (8.5-10.1); CARBON DIOXIDE,CO2 26 mmol/L (21-32); CHLORIDE,CL 100 mmol/L (98-107); CREATININE 1.27 mg/dL (0.55-1.02); GLUCOSE RANDOM 184 mg/dL (70-99); MAGNESIUM 1.7 mg/dL (1.8-2.4); POTASSIUM,K 4.5 mmol/L (3.5-5.1); PROTEIN TOTAL,TP 7.6 g/dL (6.4-8.2); SODIUM,NA 137 mmol/L (136-145)
[2023-02-26 17:15] LABS: ESTIMATED GFR 42 mL/min (>=60)
[2023-02-26 17:16] LABS: LACTIC ACID 2.5 mmol/L (0.4-2.0)
[2023-02-26] MEDS ORDERED: Furosemide 40 MG/4 ML VIAL IVPUSH ONE (17:24)
[2023-02-26] MEDS ORDERED: Albuterol/Ipratropium 3.0-0.5 MG/3 ML Neb Soln NEB PRN (19:15)
[2023-02-26] MEDS ORDERED: Sennosides/Docusate Sodium 50-8.6 MG Tab PO PRN (19:15)
[2023-02-26] MEDS ORDERED: HYDROmorphone 0.5 MG/0.5 ML Syringe IVPUSH PRN (19:15)
[2023-02-26] MEDS ORDERED: Polyethylene Glycol 3350 Powder 17 GM Packet PO PRN (19:15)
[2023-02-26] MEDS ORDERED: Rivaroxaban 10 MG Tab PO ONE (19:15)
[2023-02-26] MEDS ORDERED: Magnesium Hydroxide 400 MG/5 ML Susp 30 ML Cup PO PRN (19:15)
[2023-02-26] MEDS ORDERED: Ondansetron 4 MG/2 ML SDV IVPUSH PRN (19:15)
[2023-02-26] MEDS ORDERED: Naloxone 2 MG/2 ML Syringe IVPUSH PRN (19:15)
[2023-02-26] MEDS ORDERED: Magnesium Sulfate/Water 2 GM in Premix Bag 1 BAG IV ONE (19:54)
[2023-02-26] MEDS ORDERED: NS with KCl 40mEq 1,000 ML IV SCH (20:00)
[2023-02-26 20:06] LABS: CREATINE KINASE,CK 25 U/L (16-191)
[2023-02-26] MEDS ORDERED: Magnesium Sulfate/Water 50 ML ONE (20:07)
[2023-02-26] MEDS ORDERED: Carboxymethylcellulose Sodium 1% Ophth Gel 0.4 ML UD EYEBOTH PRN (22:15)
[2023-02-27] MEDS ORDERED: Acetaminophen 500 MG Tab PO PRN (04:42)
[2023-02-27] MEDS ORDERED: Loperamide 2 MG Cap PO PRN (04:42)
[2023-02-27 05:14] LABS: BASOPHILS PERCENT AUTO 1.2 % (0.0-1.0); EOSINOPHILS PERCENT AUTO 5.5 % (1.0-3.0); HEMATOCRIT 32.7 % (37.0-47.0); LYMPHOCYTES PERCENT AUTO 18.9 % (20.5-50.1); MEAN CORPUSCULAR HEMOGLOBIN 32.2 pg (27.0-34.0); MEAN CORPUSCULAR HGB CONC 36.7 g/dL (33.0-35.0); MEAN CORPUSCULAR VOLUME 87.7 fL (80-100); MONOCYTES PERCENT AUTO 13.1 % (2-8); NEUTROPHILS PERCENT AUTO 61.3 % (42.2-75.2); PLATELET COUNT,PLT 263 10^3/uL (150-450); RED BLOOD CELL COUNT 3.73 10^6/uL (4.2-5.4); WHITE BLOOD CELL COUNT,WBC 6.4 10^3/uL (5.0-10.0)
[2023-02-27 05:34] LABS: A/G RATIO 0.88; ANION GAP 10.9 mEq/L (7-13); BILIRUBIN TOTAL 1.1 mg/dL (0.2-1.0); BUN/CREATININE RATIO 11.8 (No establ ref range); CALCIUM 8.8 mg/dL (8.5-10.1); CREATININE 1.19 mg/dL (0.55-1.02); EST CRCL DRUG DOSING (CG) 30.93 mL/min; MAGNESIUM 2.2 mg/dL (1.8-2.4); POTASSIUM,K 3.9 mmol/L (3.5-5.1); PROTEIN TOTAL,TP 6.4 g/dL (6.4-8.2)
[2023-02-27] MEDS ORDERED: Cyanocobalamin (Vitamin B12) 1,000 MCG Tab PO SCH ×2 (06:00→07:30)
[2023-02-27] MEDS ORDERED: Non-Formulary Medication 1 Each (Ferrous Gluconate [Ferrous Gluconate] 324 MG Tablet) PO SCH (06:00)
[2023-02-27] MEDS ORDERED: Ferrous Sulfate 325 MG Tab PO SCH (07:30)
[2023-02-27] MEDS: Atenolol 50 MG Tab PO SCH (08:27)
[2023-02-27] MEDS: Gabapentin 400 MG Cap PO SCH ×3 (08:28→21:11)
[2023-02-27] MEDS: metFORMIN 500 MG Tab PO SCH ×2 (08:29→17:49)
[2023-02-27] MEDS: Cholecalciferol (Vitamin D3) 25 MCG Tab PO SCH (08:29)
[2023-02-27] MEDS: Diltiazem 120 MG Cap.CD PO SCH (08:29)
[2023-02-27] MEDS ORDERED: Ascorbic Acid 500 MG Tab PO SCH (09:00)
[2023-02-27] MEDS: Calcium Carbonate/Vitamin D3 1250 MG-5 MCG Tab PO SCH ×2 (09:44→21:11)
[2023-02-27] MEDS: Rivaroxaban 10 MG Tab PO SCH (17:49)
[2023-02-27] MEDS: atorvaSTATin 20 MG Tab PO SCH (21:11)
[2023-02-28] MEDS ORDERED: Ferrous Sulfate 325 MG Tab PO SCH (06:00)
[2023-02-28 06:42] LABS: BASOPHILS PERCENT AUTO 1.3 % (0.0-1.0); EOSINOPHILS PERCENT AUTO 5.8 % (1.0-3.0); HEMATOCRIT 32.3 % (37.0-47.0); HEMOGLOBIN 10.1 g/dL (12.0-16.0); LYMPHOCYTES PERCENT AUTO 19.1 % (20.5-50.1); MEAN CORPUSCULAR HEMOGLOBIN 27.7 pg (27.0-34.0); MEAN CORPUSCULAR HGB CONC 31.3 g/dL (33.0-35.0); MEAN CORPUSCULAR VOLUME 88.7 fL (80-100); MONOCYTES PERCENT AUTO 11.8 % (2-8); PLATELET COUNT,PLT 262 10^3/uL (150-450); RED BLOOD CELL COUNT 3.64 10^6/uL (4.2-5.4); WHITE BLOOD CELL COUNT,WBC 6.8 10^3/uL (5.0-10.0)
[2023-02-28 06:53] LABS: ALBUMIN 2.8 g/dL (3.4-5.0); ANION GAP 13.4 mEq/L (7-13); BILIRUBIN TOTAL 0.7 mg/dL (0.2-1.0); BUN/CREATININE RATIO 10.6 (No establ ref range); CALCIUM 8.6 mg/dL (8.5-10.1); CREATININE 1.13 mg/dL (0.55-1.02); EST CRCL DRUG DOSING (CG) 32.57 mL/min; MAGNESIUM 1.8 mg/dL (1.8-2.4); POTASSIUM,K 4.4 mmol/L (3.5-5.1)
[2023-02-28 06:58] LABS: A/G RATIO 0.88
[2023-02-28] MEDS ORDERED: Furosemide 20 MG/2 ML VIAL IVPUSH ONE (07:53)
[2023-02-28] MEDS: Diltiazem 120 MG Cap.CD PO SCH (08:25)
[2023-02-28] MEDS: metFORMIN 500 MG Tab PO SCH ×2 (08:25→17:43)
[2023-02-28] MEDS: Cholecalciferol (Vitamin D3) 25 MCG Tab PO SCH (08:26)
[2023-02-28] MEDS: Lisinopril 10 MG Tab PO SCH (08:26)
[2023-02-28] MEDS: Gabapentin 400 MG Cap PO SCH ×3 (08:26→21:00)
[2023-02-28] MEDS: Atenolol 50 MG Tab PO SCH (08:26)
[2023-02-28] MEDS: Hydrochlorothiazide 25 MG Tab PO SCH (08:27)
[2023-02-28] MEDS: Calcium Carbonate/Vitamin D3 1250 MG-5 MCG Tab PO SCH ×2 (08:27→21:01)
[2023-02-28] MEDS: Cyanocobalamin (Vitamin B12) 1,000 MCG Tab PO SCH (08:27)
[2023-02-28] MEDS: Rivaroxaban 10 MG Tab PO SCH (17:44)
[2023-02-28] MEDS: Ascorbic Acid 500 MG Tab PO SCH (20:59)
[2023-02-28] MEDS: atorvaSTATin 20 MG Tab PO SCH (21:02)
[2023-02-28] MEDS: Ferrous Sulfate 325 MG Tab PO SCH (21:02)
[2023-03-01 07:02] LABS: BASOPHILS PERCENT AUTO 1.2 % (0.0-1.0); EOSINOPHILS PERCENT AUTO 5.5 % (1.0-3.0); HEMOGLOBIN 10.3 g/dL (12.0-16.0); LYMPHOCYTES PERCENT AUTO 21.4 % (20.5-50.1); MEAN CORPUSCULAR HEMOGLOBIN 27.6 pg (27.0-34.0); MEAN CORPUSCULAR HGB CONC 31.2 g/dL (33.0-35.0); MEAN CORPUSCULAR VOLUME 88.5 fL (80-100); MONOCYTES PERCENT AUTO 11.8 % (2-8); NEUTROPHILS PERCENT AUTO 60.1 % (42.2-75.2); PLATELET COUNT,PLT 284 10^3/uL (150-450); RED BLOOD CELL COUNT 3.73 10^6/uL (4.2-5.4); WHITE BLOOD CELL COUNT,WBC 6.5 10^3/uL (5.0-10.0)
[2023-03-01 07:31] LABS: B-TYPE NATRIURETIC PEPTIDE,BNP 824 pg/ml (0-100)
[2023-03-01 07:50] LABS: ALBUMIN 2.7 g/dL (3.4-5.0); ANION GAP 12.1 mEq/L (7-13); BUN/CREATININE RATIO 11.4 (No establ ref range); CALCIUM 8.9 mg/dL (8.5-10.1); CREATININE 1.23 mg/dL (0.55-1.02); EST CRCL DRUG DOSING (CG) 29.93 mL/min; MAGNESIUM 1.8 mg/dL (1.8-2.4); POTASSIUM,K 4.1 mmol/L (3.5-5.1)
[2023-03-01 07:52] LABS: A/G RATIO 0.82
[2023-03-01] MEDS: Atenolol 50 MG Tab PO SCH (10:23)
[2023-03-01] MEDS: Cholecalciferol (Vitamin D3) 25 MCG Tab PO SCH (10:23)
[2023-03-01] MEDS: Gabapentin 400 MG Cap PO SCH ×3 (10:24→21:09)
[2023-03-01] MEDS: metFORMIN 500 MG Tab PO SCH ×2 (10:24→17:29)
[2023-03-01] MEDS: Lisinopril 10 MG Tab PO SCH (10:24)
[2023-03-01] MEDS: Diltiazem 120 MG Cap.CD PO SCH (10:25)
[2023-03-01] MEDS: Hydrochlorothiazide 25 MG Tab PO SCH (10:25)
[2023-03-01] MEDS: Cyanocobalamin (Vitamin B12) 1,000 MCG Tab PO SCH (10:25)
[2023-03-01] MEDS: Calcium Carbonate/Vitamin D3 1250 MG-5 MCG Tab PO SCH ×2 (10:25→21:09)
[2023-03-01] MEDS: Furosemide 20 MG Tab PO SCH (10:33)
[2023-03-01] MEDS: Rivaroxaban 10 MG Tab PO SCH (17:29)
[2023-03-01] MEDS: atorvaSTATin 20 MG Tab PO SCH (21:07)
[2023-03-01] MEDS: Ferrous Sulfate 325 MG Tab PO SCH (21:08)
[2023-03-01] MEDS: Ascorbic Acid 500 MG Tab PO SCH (21:08)
[2023-03-02 06:40] LABS: BASOPHILS PERCENT AUTO 1.6 % (0.0-1.0); EOSINOPHILS PERCENT AUTO 6.2 % (1.0-3.0); HEMATOCRIT 32.8 % (37.0-47.0); HEMOGLOBIN 10.3 g/dL (12.0-16.0); LYMPHOCYTES PERCENT AUTO 25.4 % (20.5-50.1); MEAN CORPUSCULAR HEMOGLOBIN 27.5 pg (27.0-34.0); MEAN CORPUSCULAR HGB CONC 31.4 g/dL (33.0-35.0); MEAN CORPUSCULAR VOLUME 87.7 fL (80-100); MONOCYTES PERCENT AUTO 11.7 % (2-8); NEUTROPHILS PERCENT AUTO 55.1 % (42.2-75.2); PLATELET COUNT,PLT 305 10^3/uL (150-450); RED BLOOD CELL COUNT 3.74 10^6/uL (4.2-5.4); WHITE BLOOD CELL COUNT,WBC 6.3 10^3/uL (5.0-10.0)
[2023-03-02 07:02] LABS: ANION GAP 9.9 mEq/L (7-13); CALCIUM 9.1 mg/dL (8.5-10.1); CREATININE 1.15 mg/dL (0.55-1.02); EST CRCL DRUG DOSING (CG) 32.01 mL/min; POTASSIUM,K 3.9 mmol/L (3.5-5.1)
[2023-03-02] MEDS: Gabapentin 400 MG Cap PO SCH ×3 (09:36→21:18)
[2023-03-02] MEDS: Cholecalciferol (Vitamin D3) 25 MCG Tab PO SCH (09:36)
[2023-03-02] MEDS: Cyanocobalamin (Vitamin B12) 1,000 MCG Tab PO SCH (09:37)
[2023-03-02] MEDS: Hydrochlorothiazide 25 MG Tab PO SCH (09:38)
[2023-03-02] MEDS: Lisinopril 10 MG Tab PO SCH (09:38)
[2023-03-02] MEDS: metFORMIN 500 MG Tab PO SCH ×2 (09:38→17:21)
[2023-03-02] MEDS: Furosemide 20 MG Tab PO SCH (09:39)
[2023-03-02] MEDS: Atenolol 50 MG Tab PO SCH (09:40)
[2023-03-02] MEDS: Calcium Carbonate/Vitamin D3 1250 MG-5 MCG Tab PO SCH ×2 (09:40→21:18)
[2023-03-02] MEDS: Diltiazem 120 MG Cap.CD PO SCH (09:40)
[2023-03-02] MEDS: Rivaroxaban 10 MG Tab PO SCH (17:22)
[2023-03-02] MEDS: Carboxymethylcellulose Sodium 1% Ophth Gel 0.4 ML UD EYEBOTH PRN (17:23)
[2023-03-02] MEDS: atorvaSTATin 20 MG Tab PO SCH (21:18)
[2023-03-02] MEDS: Ferrous Sulfate 325 MG Tab PO SCH (21:18)
[2023-03-02] MEDS: Ascorbic Acid 500 MG Tab PO SCH (21:21)
[2023-03-03] MEDS: Calcium Carbonate/Vitamin D3 1250 MG-5 MCG Tab PO SCH ×2 (08:22→20:19)
[2023-03-03] MEDS: metFORMIN 500 MG Tab PO SCH ×2 (08:22→17:29)
[2023-03-03] MEDS: Cholecalciferol (Vitamin D3) 25 MCG Tab PO SCH (08:22)
[2023-03-03] MEDS: Atenolol 50 MG Tab PO SCH (08:23)
[2023-03-03] MEDS: Hydrochlorothiazide 25 MG Tab PO SCH (08:23)
[2023-03-03] MEDS: Furosemide 20 MG Tab PO SCH (08:24)
[2023-03-03] MEDS: Cyanocobalamin (Vitamin B12) 1,000 MCG Tab PO SCH (08:24)
[2023-03-03] MEDS: Gabapentin 400 MG Cap PO SCH ×3 (08:24→20:20)
[2023-03-03] MEDS: Diltiazem 120 MG Cap.CD PO SCH (08:25)
[2023-03-03] MEDS: Lisinopril 10 MG Tab PO SCH (08:25)
[2023-03-03] MEDS: Acetaminophen 325 MG Tab PO PRN ×2 (10:39→20:20)
[2023-03-03] MEDS: Carboxymethylcellulose Sodium 1% Ophth Gel 0.4 ML UD EYEBOTH PRN (10:40)
[2023-03-03] MEDS: Rivaroxaban 10 MG Tab PO SCH (17:30)
[2023-03-03] MEDS: Ascorbic Acid 500 MG Tab PO SCH (20:19)
[2023-03-03] MEDS: atorvaSTATin 20 MG Tab PO SCH (20:20)
[2023-03-03] MEDS: Ferrous Sulfate 325 MG Tab PO SCH (20:20)
[2023-03-04] MEDS: metFORMIN 500 MG Tab PO SCH ×2 (08:17→18:03)
[2023-03-04] MEDS: Hydrochlorothiazide 25 MG Tab PO SCH (08:18)
[2023-03-04] MEDS: Diltiazem 120 MG Cap.CD PO SCH (08:18)
[2023-03-04] MEDS: Cholecalciferol (Vitamin D3) 25 MCG Tab PO SCH (08:18)
[2023-03-04] MEDS: Gabapentin 400 MG Cap PO SCH ×3 (08:18→21:30)
[2023-03-04] MEDS: Cyanocobalamin (Vitamin B12) 1,000 MCG Tab PO SCH (08:18)
[2023-03-04] MEDS: Atenolol 50 MG Tab PO SCH (08:19)
[2023-03-04] MEDS: Calcium Carbonate/Vitamin D3 1250 MG-5 MCG Tab PO SCH ×2 (08:19→21:30)
[2023-03-04] MEDS: Lisinopril 10 MG Tab PO SCH (08:19)
[2023-03-04] MEDS: Furosemide 20 MG Tab PO SCH (08:25)
[2023-03-04] MEDS: Rivaroxaban 10 MG Tab PO SCH (18:02)
[2023-03-04] MEDS: atorvaSTATin 20 MG Tab PO SCH (21:30)
[2023-03-04] MEDS: Ferrous Sulfate 325 MG Tab PO SCH (21:30)
[2023-03-04] MEDS: Ascorbic Acid 500 MG Tab PO SCH (21:30)
[2023-03-05 06:30] LABS: BASOPHILS PERCENT AUTO 1.1 % (0.0-1.0); EOSINOPHILS PERCENT AUTO 6.1 % (1.0-3.0); HEMATOCRIT 34.2 % (37.0-47.0); HEMOGLOBIN 10.9 g/dL (12.0-16.0); LYMPHOCYTES PERCENT AUTO 23.6 % (20.5-50.1); MEAN CORPUSCULAR HEMOGLOBIN 27.5 pg (27.0-34.0); MEAN CORPUSCULAR HGB CONC 31.9 g/dL (33.0-35.0); MEAN CORPUSCULAR VOLUME 86.1 fL (80-100); NEUTROPHILS PERCENT AUTO 57.2 % (42.2-75.2); PLATELET COUNT,PLT 371 10^3/uL (150-450); RED BLOOD CELL COUNT 3.97 10^6/uL (4.2-5.4); WHITE BLOOD CELL COUNT,WBC 6.3 10^3/uL (5.0-10.0)
[2023-03-05 06:49] LABS: ANION GAP 11.8 mEq/L (7-13); CALCIUM 9.5 mg/dL (8.5-10.1); CREATININE 1.14 mg/dL (0.55-1.02); EST CRCL DRUG DOSING (CG) 32.29 mL/min; POTASSIUM,K 3.8 mmol/L (3.5-5.1)
[2023-03-05] MEDS: metFORMIN 500 MG Tab PO SCH (08:27)
[2023-03-05] MEDS: Cholecalciferol (Vitamin D3) 25 MCG Tab PO SCH (08:27)
[2023-03-05] MEDS: Lisinopril 10 MG Tab PO SCH (08:27)
[2023-03-05] MEDS: Cyanocobalamin (Vitamin B12) 1,000 MCG Tab PO SCH (08:28)
[2023-03-05] MEDS: Gabapentin 400 MG Cap PO SCH ×2 (08:28→14:35)
[2023-03-05] MEDS: Hydrochlorothiazide 25 MG Tab PO SCH (08:28)
[2023-03-05] MEDS: Calcium Carbonate/Vitamin D3 1250 MG-5 MCG Tab PO SCH (08:28)
[2023-03-05] MEDS: Diltiazem 120 MG Cap.CD PO SCH (08:28)
[2023-03-05] MEDS: Furosemide 20 MG Tab PO SCH (08:29)
[2023-03-05] MEDS: Atenolol 50 MG Tab PO SCH (08:29)
== END 2023-03-05 16:20 | disposition home health service (06) | DRG 280 ==
LOC: DL.ED 15:47 → UNDOADMIN 17:46 → DL.MS 17:46 → DL.ED 17:59
PROVIDERS: ADMIT Internal Medicine; ATTEND Internal Medicine
DX: I13.0 Hypertensive heart and chronic kidney disease with heart failure and stage 1 through stage 4 chronic kidney disease, or unspecified chronic kidney disease (principal); I21.A1 Myocardial infarction type 2; I50.31 Acute diastolic (congestive) heart failure; E87.20 Acidosis, unspecified; I48.20 Chronic atrial fibrillation, unspecified; E11.22 Type 2 diabetes mellitus with diabetic chronic kidney disease; N18.30 Chronic kidney disease, stage 3 unspecified; D50.9 Iron deficiency anemia, unspecified; R09.02 Hypoxemia; E11.65 Type 2 diabetes mellitus with hyperglycemia; E83.42 Hypomagnesemia; E80.6 Other disorders of bilirubin metabolism; G89.29 Other chronic pain; M54.50 Low back pain, unspecified; Z66 Do not resuscitate; E78.00 Pure hypercholesterolemia, unspecified; Z88.8 Allergy status to other drugs, medicaments and biological substances; Z79.01 Long term (current) use of anticoagulants; Z79.4 Long term (current) use of insulin; Z90.89 Acquired absence of other organs; Z98.42 Cataract extraction status, left eye; Z98.41 Cataract extraction status, right eye; Z90.49 Acquired absence of other specified parts of digestive tract; Z90.710 Acquired absence of both cervix and uterus; Z98.890 Other specified postprocedural states
CPT/HCPCS: 36415; 71046; 80048; 80053; 80061; 82550; 82947; 83605; 83735; 83880; 84484; 85025; 85610; 86140; 87040; 93005; 93010; 93306; 94010; 94060; 94667; 94668; 94762; 96374; 97110-GP; 97161-GP; 97165-GO; 97530-GO; 97535-GO; 99223; 99232; 99285; 99285-25; A9270-GY; J1940; J3475; J3480; J3490

== ENCOUNTER 2023-03-07 14:45 | Emergency (ER) | payer MEDICARE, OTHER ==
[2023-03-07] MEDS: Sodium Chloride 0.9% 10 ML Syringe FLUSH PRN ×2 (15:29→17:27)
[2023-03-07 15:39] LABS: BASOPHILS PERCENT AUTO 0.5 % (0.0-1.0); EOSINOPHILS PERCENT AUTO 3.1 % (1.0-3.0); HEMATOCRIT 37.2 % (37.0-47.0); LYMPHOCYTES PERCENT AUTO 18.2 % (20.5-50.1); MEAN CORPUSCULAR HEMOGLOBIN 27.1 pg (27.0-34.0); MEAN CORPUSCULAR HGB CONC 32.3 g/dL (33.0-35.0); MEAN CORPUSCULAR VOLUME 84.2 fL (80-100); MONOCYTES PERCENT AUTO 8.5 % (2-8); NEUTROPHILS PERCENT AUTO 69.7 % (42.2-75.2); PLATELET COUNT,PLT 426 10^3/uL (150-450); RED BLOOD CELL COUNT 4.42 10^6/uL (4.2-5.4); WHITE BLOOD CELL COUNT,WBC 7.4 10^3/uL (5.0-10.0)
[2023-03-07 15:58] LABS: ALANINE AMINOTRANSFERASE,ALT 19 U/L (14-59); ALBUMIN 3.6 g/dL (3.4-5.0); ALKALINE PHOSPHATASE 56 U/L (46-116); ANION GAP 16.1 mEq/L (7-13); ASPARTATE AMNIOTRANSFERASE,AST 16 U/L (15-37); BILIRUBIN TOTAL 1.2 mg/dL (0.2-1.0); BLOOD UREA NITROGEN,BUN 15 mg/dL (7-18); BUN/CREATININE RATIO 13.4 (No establ ref range); CALCIUM 9.3 mg/dL (8.5-10.1); CARBON DIOXIDE,CO2 27 mmol/L (21-32); CHLORIDE,CL 90 mmol/L (98-107); CREATININE 1.12 mg/dL (0.55-1.02); EST CRCL DRUG DOSING (CG) 32.86 mL/min; GLUCOSE RANDOM 120 mg/dL (70-99); MAGNESIUM 1.6 mg/dL (1.8-2.4); POTASSIUM,K 4.1 mmol/L (3.5-5.1); PROTEIN TOTAL,TP 7.3 g/dL (6.4-8.2); SODIUM,NA 129 mmol/L (136-145)
[2023-03-07 16:01] LABS: B-TYPE NATRIURETIC PEPTIDE,BNP 846 pg/ml (0-100); ESTIMATED GFR 49 mL/min (>=60)
[2023-03-07 16:02] LABS: C-REACTIVE PROTEIN < 0.05 ng/dL (<=0.30)
[2023-03-07] MEDS ORDERED: Digoxin 250 MCG Tab PO ONE (17:14)
[2023-03-07] MEDS ORDERED: Furosemide 40 MG/4 ML VIAL IVPUSH ONE (17:16)
== END 2023-03-07 18:00 | disposition home or self-care (01) ==
LOC: DL.ED 14:45
DX: I11.0 Hypertensive heart disease with heart failure (principal); I50.9 Heart failure, unspecified; E78.00 Pure hypercholesterolemia, unspecified; E11.9 Type 2 diabetes mellitus without complications; Z90.49 Acquired absence of other specified parts of digestive tract; Z90.710 Acquired absence of both cervix and uterus; Z79.899 Other long term (current) drug therapy; Z88.8 Allergy status to other drugs, medicaments and biological substances; Z88.6 Allergy status to analgesic agent
CPT/HCPCS: 36415; 71046; 80053; 82947; 83735; 83880; 84484; 85025; 86140; 96374; 99284; 99285-25; A9270-GY; J1940; J3490

== ENCOUNTER 2023-05-08 20:25 | Emergency (ER) | payer MEDICARE, OTHER ==
[2023-05-08 21:02] LABS: BASOPHILS PERCENT AUTO 1.1 % (0.0-1.0); EOSINOPHILS PERCENT AUTO 2.8 % (1.0-3.0); HEMATOCRIT 42.4 % (37.0-47.0); HEMOGLOBIN 13.5 g/dL (12.0-16.0); LYMPHOCYTES PERCENT AUTO 27.3 % (20.5-50.1); MEAN CORPUSCULAR HEMOGLOBIN 26.5 pg (27.0-34.0); MEAN CORPUSCULAR HGB CONC 31.8 g/dL (33.0-35.0); MEAN CORPUSCULAR VOLUME 83.1 fL (80-100); MONOCYTES PERCENT AUTO 8.8 % (2-8); PLATELET COUNT,PLT 260 10^3/uL (150-450); WHITE BLOOD CELL COUNT,WBC 7.1 10^3/uL (5.0-10.0)
[2023-05-08 21:16] LABS: PROTHROMBIN TIME 10.4 SEC (9.0-12.0)
[2023-05-08 21:20] LABS: A/G RATIO 1.1; ALANINE AMINOTRANSFERASE,ALT 18 U/L (14-59); ALBUMIN 3.5 g/dL (3.4-5.0); ALKALINE PHOSPHATASE 62 U/L (46-116); ANION GAP 14.8 mEq/L (7-13); ASPARTATE AMNIOTRANSFERASE,AST 16 U/L (15-37); BILIRUBIN TOTAL 1.2 mg/dL (0.2-1.0); BLOOD UREA NITROGEN,BUN 14 mg/dL (7-18); BUN/CREATININE RATIO 13.1 (No establ ref range); CALCIUM 10.2 mg/dL (8.5-10.1); CARBON DIOXIDE,CO2 25 mmol/L (21-32); CHLORIDE,CL 103 mmol/L (98-107); CREATININE 1.07 mg/dL (0.55-1.02); ESTIMATED GFR 51 mL/min (>=60); GLUCOSE RANDOM 75 mg/dL (70-99); POTASSIUM,K 4.8 mmol/L (3.5-5.1); PROTEIN TOTAL,TP 6.8 g/dL (6.4-8.2); SODIUM,NA 138 mmol/L (136-145)
[2023-05-08] MEDS ORDERED: Iopamidol 755 Mg/ML 100 ML Bottle IVPUSH ONE (21:22)
[2023-05-08] MEDS ORDERED: Sodium Chloride 0.9% 500 ML IV SCH (23:15)
[2023-05-09] MEDS ORDERED: Heparin Sodium 5,000 Units/ML Vial IVPUSH ONE (00:08)
[2023-05-09] MEDS ORDERED: Heparin Sodium/0.45% NaCl 25,000 UNITS/500 ML BAG IV SCH (00:15)
== END 2023-05-09 00:59 ==
LOC: DL.ED 20:25
DX: I82.411 Acute embolism and thrombosis of right femoral vein (principal); E78.00 Pure hypercholesterolemia, unspecified; I10 Essential (primary) hypertension; E11.9 Type 2 diabetes mellitus without complications; Z88.6 Allergy status to analgesic agent; Z88.8 Allergy status to other drugs, medicaments and biological substances; Z79.84 Long term (current) use of oral hypoglycemic drugs; Z79.899 Other long term (current) drug therapy; Z90.49 Acquired absence of other specified parts of digestive tract; Z90.710 Acquired absence of both cervix and uterus
CPT/HCPCS: 36415; 73706-RT; 80053; 84484; 85025; 85610; 93005; 93010; 96365; 96376; 99284; 99285-25; J1644; J7040; Q9967